=== PATIENT | female | born 1980 | race Caucasian/White ===

== ENCOUNTER 2018-11-10 10:12 | Emergency (ER) | payer SELFPAY ==
[~2018-11-10] VITALS: Ht 160 cm; Wt 68.0 kg
[2018-11-10 11:25] LABS: BASOPHILS % (AUTO) 0.3 % (0.0-2.0); EOSINOPHILS % (AUTO) 0.5 % (1.0-6.0); HEMATOCRIT 37.6 % (36-46); HEMOGLOBIN 12.4 g/dL (12.0-16.0); LYMPHOCYTES # (AUTO) 1.9 K/uL (1.0-4.8); LYMPHOCYTES % (AUTO) 19.6 % (22.0-44.0); MEAN CORPUSCULAR HGB CONC 32.9 G/dL (31.0-37.0); MEAN CORPUSCULAR VOLUME 85 fL (80-100); MONOCYTES # (AUTO) 0.7 K/uL (0.1-1.0); NEUTROPHILS # (AUTO) 7.1 K/uL (1.8-7.7); NEUTROPHILS % (AUTO) 72.6 % (40.0-70.0); PLATELET COUNT (AUTO) 269 K/uL (150-450); RED BLOOD CELL COUNT(AUTO) 4.41 MIL/uL (4.00-5.20); RED CELL DISTRIBUTION WIDTH 14.7 % (11.5-14.5)
[2018-11-10 11:35] LABS: ANION GAP 4 mmol/L (8-16); CALCIUM, TOTAL 9.2 mg/dL (8.8-10.5); CARBON DIOXIDE 28 mmol/L (22-29); CHLORIDE 106 mmol/L (98-107); CREATININE 0.71 mg/dL (0.60-1.30); GLOMERULAR FILTR. RATE CALC > 60 mL/min (>60); GLUCOSE,RANDOM 87 mg/dL (70-110); POTASSIUM 4.3 mmol/L (3.5-5.1); SODIUM SERUM 138 mmol/L (136-145); UREA NITROGEN, BLOOD 11 mg/dL (7-18)
[2018-11-10 11:41] LABS: ALANINE AMINOTRANSFERASE 17 U/L (12-78); ALBUMIN 3.2 g/dL (3.4-5.0); ALKALINE PHOSPHATASE 61 U/L (46-116); ASPARTATE AMINOTRANSFERASE 16 U/L (15-37); BILIRUBIN,TOTAL 0.2 mg/dL (0.1-1.0); TOTAL PROTEIN, SERUM 6.8 g/dL (6.4-8.2)
[2018-11-10 14:06] LABS: APPEARANCE,URINE CLEAR (CLEAR); BILIRUBIN,URINE NEGATIVE (NEGATIVE); GLUCOSE, URINE (UA) NEGATIVE (NEGATIVE); KETONES,URINE NEGATIVE (NEGATIVE); LEUKOCYTE ESTERASE ,URINE NEGATIVE (NEGATIVE); NITRATE,URINE NEGATIVE (NEGATIVE); OCCULT BLOOD,URINE NEGATIVE (NEGATIVE); PH,URINE 5.5 (5.0-8.0); PROTEIN,URINE NEGATIVE (NEGATIVE); UROBILINOGEN,URINE 0.2 mg/dL (<=1.0)
[2018-11-10 14:10] LABS: AMPHET/METH SCREEN,URINE POSITIVE (NEGATIVE); BARBITURATE SCREEN, URINE NEGATIVE (NEGATIVE); BENZODIAZEPINES SCREEN,URINE NEGATIVE (NEGATIVE); CANNABINOID SCREEN,URINE POSITIVE (NEGATIVE); COCAINE SCREEN,URINE NEGATIVE (NEGATIVE); METHADONE SCREEN, URINE NEGATIVE (NEGATIVE); OPIATE SCREEN,URINE NEGATIVE (NEGATIVE)
[2018-11-10 14:13] LABS: PHENCYCLIDINE SCREEN,URINE NEGATIVE (NEGATIVE)
[2018-11-10] MEDS ORDERED: HALOPERIDOL 5 MG TABLET PO ONE (17:15)
[2018-11-10] MEDS ORDERED: BENZTROPINE MESYLATE 2 MG TABLET PO ONE (17:15)
[2018-11-10 20:20] VITALS: BP 133/81
== END 2018-11-10 20:23 | disposition home or self-care (01) ==
LOC: EMS 10:14
DX: F20.0 Paranoid schizophrenia (principal); F15.10 Other stimulant abuse, uncomplicated; F17.210 Nicotine dependence, cigarettes, uncomplicated
CPT/HCPCS: 36415; 80053; 80307; 81003; 85025; 99284; 99406; G0480

== ENCOUNTER 2018-11-16 21:11 | Inpatient (IN) | payer MEDICAID ==
[~2018-11-16] VITALS: Ht 160 cm; Wt 62.6 kg
[2018-11-16 22:07] LABS: AMPHET/METH SCREEN,URINE POSITIVE (NEGATIVE); BARBITURATE SCREEN, URINE NEGATIVE (NEGATIVE); BENZODIAZEPINES SCREEN,URINE NEGATIVE (NEGATIVE); CANNABINOID SCREEN,URINE POSITIVE (NEGATIVE); COCAINE SCREEN,URINE NEGATIVE (NEGATIVE); METHADONE SCREEN, URINE NEGATIVE (NEGATIVE); OPIATE SCREEN,URINE NEGATIVE (NEGATIVE); PHENCYCLIDINE SCREEN,URINE NEGATIVE (NEGATIVE)
[2018-11-16 22:35] LABS: BASOPHILS % (AUTO) 0.5 % (0.0-2.0); EOSINOPHILS % (AUTO) 0.7 % (1.0-6.0); HEMATOCRIT 37.1 % (36-46); HEMOGLOBIN 12.3 g/dL (12.0-16.0); LYMPHOCYTES # (AUTO) 2.4 K/uL (1.0-4.8); LYMPHOCYTES % (AUTO) 23.6 % (22.0-44.0); MEAN CORPUSCULAR HEMOGLOBIN 28.5 pg (26.0-34.0); MEAN CORPUSCULAR HGB CONC 33.2 G/dL (31.0-37.0); MEAN CORPUSCULAR VOLUME 86 fL (80-100); MONOCYTES # (AUTO) 0.8 K/uL (0.1-1.0); MONOCYTES % (AUTO) 7.9 % (2.0-9.0); NEUTROPHILS # (AUTO) 6.7 K/uL (1.8-7.7); NEUTROPHILS % (AUTO) 67.3 % (40.0-70.0); PLATELET COUNT (AUTO) 274 K/uL (150-450); RED BLOOD CELL COUNT(AUTO) 4.32 MIL/uL (4.00-5.20); RED CELL DISTRIBUTION WIDTH 14.9 % (11.5-14.5)
[2018-11-16 22:45] LABS: ANION GAP 11 mmol/L (8-16); CALCIUM, TOTAL 9.3 mg/dL (8.8-10.5); CARBON DIOXIDE 27 mmol/L (22-29); CHLORIDE 102 mmol/L (98-107); CREATININE 0.67 mg/dL (0.60-1.30); GLOMERULAR FILTR. RATE CALC > 60 mL/min (>60); GLUCOSE,RANDOM 84 mg/dL (70-110); POTASSIUM 3.5 mmol/L (3.5-5.1); SODIUM SERUM 140 mmol/L (136-145); UREA NITROGEN, BLOOD 10 mg/dL (7-18)
[2018-11-16 22:57] LABS: ALANINE AMINOTRANSFERASE 14 U/L (12-78); ALBUMIN 3.4 g/dL (3.4-5.0); ALKALINE PHOSPHATASE 70 U/L (46-116); ASPARTATE AMINOTRANSFERASE 16 U/L (15-37); BILIRUBIN,TOTAL 0.3 mg/dL (0.1-1.0); HCG,QUANTITATIVE < 1 mIU/mL (0-6); TOTAL PROTEIN, SERUM 7.4 g/dL (6.4-8.2)
[2018-11-17] MEDS ORDERED: DOXYCYCLINE HYCLATE 100 MG CAPSULE PO ONE ×2 (06:15→09:00)
[2018-11-17] MEDS ORDERED: CEPHALEXIN MONOHYDRATE 500 MG CAPSULE PO ONE (06:15)
[2018-11-17] MEDS ORDERED: ZOLPIDEM TARTRATE 10 MG TABLET PO PRN (06:30)
[2018-11-17] MEDS ORDERED: HALOPERIDOL 5 MG TABLET PO PRN (06:30)
[2018-11-17 09:35] VITALS: BP 123/71
[2018-11-17 09:36] VITALS: BP 123/71
[2018-11-17] MEDS ORDERED: DOCUSATE SODIUM 100 MG CAPSULE PO PRN (10:00)
[2018-11-17] MEDS ORDERED: PETROLATUM,WHITE 28 GM JELLY TP PRN (10:00)
[2018-11-17] MEDS ORDERED: MAG HYDROX/AL HYDROX/SIMETH ES 30 ML SUSPENSION UDCUP PO PRN (10:00)
[2018-11-17] MEDS ORDERED: IBUPROFEN 400 MG TABLET PO PRN (10:00)
[2018-11-17] MEDS ORDERED: ACETAMINOPHEN 325 MG TABLET PO PRN (10:00)
[2018-11-17] MEDS ORDERED: LOPERAMIDE HCL 2 MG CAPSULE PO PRN (10:00)
[2018-11-17] MEDS ORDERED: MAGNESIUM HYDROXIDE SUSPENSION 30 ML UDCUP PO PRN (10:00)
[2018-11-17] MEDS: SULFAMETHOX/TRIMETH DS 800-160 MG/TABLET PO SCH (10:32)
[2018-11-17] MEDS: FLUoxetine HCL 20 MG CAPSULE PO SCH (10:47)
[2018-11-17] MEDS: RisperiDONE 2 MG TABLET PO SCH ×2 (10:47→20:33)
[2018-11-17] MEDS ORDERED: PNEUMOCOCCAL VACCINE POLYVALENT 0.5 ML VIAL [PPSV23] IM ONE (11:15)
[2018-11-17] MEDS: CEPHALEXIN MONOHYDRATE 500 MG CAPSULE PO SCH ×2 (12:50→17:06)
[2018-11-17 16:33] VITALS: BP 100/61
[2018-11-18 03:34] VITALS: BP 122/71
[2018-11-18 08:49] VITALS: BP 110/64
[2018-11-18] MEDS: RisperiDONE 2 MG TABLET PO SCH ×2 (09:33→21:00)
[2018-11-18] MEDS: FLUoxetine HCL 20 MG CAPSULE PO SCH (09:33)
[2018-11-18] MEDS: SULFAMETHOX/TRIMETH DS 800-160 MG/TABLET PO SCH (09:34)
[2018-11-18] MEDS ORDERED: DiphenhydrAMINE HCL 50 MG/ML VIAL IM ONE (10:45)
[2018-11-18 11:10] VITALS: BP 101/77
[2018-11-18 16:00] VITALS: BP 108/67
[2018-11-19 06:20] VITALS: BP 115/68
[2018-11-19 08:20] VITALS: BP 119/74
[2018-11-19 08:50] LABS: CHOL/HDL RATIO 3.2 (3.9-5.7)
[2018-11-19] MEDS: RisperiDONE 2 MG TABLET PO SCH ×2 (09:27→21:22)
[2018-11-19] MEDS: FLUoxetine HCL 20 MG CAPSULE PO SCH (09:27)
[2018-11-19] MEDS: SULFAMETHOX/TRIMETH DS 800-160 MG/TABLET PO SCH (09:28)
[2018-11-19 16:11] VITALS: BP 132/61
[2018-11-20 04:12] VITALS: BP 120/81
[2018-11-20 08:27] VITALS: BP 106/74
[2018-11-20] MEDS: RisperiDONE 2 MG TABLET PO SCH ×2 (09:12→20:16)
[2018-11-20] MEDS: SULFAMETHOX/TRIMETH DS 800-160 MG/TABLET PO SCH (09:13)
[2018-11-20] MEDS: FLUoxetine HCL 20 MG CAPSULE PO SCH (09:15)
[2018-11-20] MEDS: LORazepam 2 MG TABLET PO PRN (09:55)
[2018-11-20 16:13] VITALS: BP 111/71
[2018-11-21 05:37] VITALS: BP 110/85
[2018-11-21 08:34] VITALS: BP 103/64
[2018-11-21] MEDS: RisperiDONE 2 MG TABLET PO SCH ×2 (09:07→20:59)
[2018-11-21] MEDS: SULFAMETHOX/TRIMETH DS 800-160 MG/TABLET PO SCH (09:07)
[2018-11-21] MEDS: FLUoxetine HCL 20 MG CAPSULE PO SCH (09:07)
[2018-11-21] MEDS: LORazepam 2 MG TABLET PO PRN ×2 (09:15→16:11)
[2018-11-21] MEDS: BENZTROPINE MESYLATE 1 MG TABLET PO SCH ×2 (13:32→20:59)
[2018-11-21 16:12] VITALS: BP 112/70
[2018-11-22 08:33] VITALS: BP 113/72
[2018-11-22] MEDS: SULFAMETHOX/TRIMETH DS 800-160 MG/TABLET PO SCH (08:37)
[2018-11-22] MEDS: LORazepam 2 MG TABLET PO PRN (08:37)
[2018-11-22] MEDS: BENZTROPINE MESYLATE 1 MG TABLET PO SCH (08:38)
[2018-11-22] MEDS: RisperiDONE 2 MG TABLET PO SCH (08:38)
[2018-11-22] MEDS: FLUoxetine HCL 20 MG CAPSULE PO SCH (08:38)
[2018-11-22] MEDS ORDERED: FLUO-191 PO ×2 (10:46→11:04)
[2018-11-22] MEDS ORDERED: RISP2 PO (10:46)
[2018-11-22] MEDS ORDERED: BENZ1TAB10 PO ×2 (10:46→11:04)
[2018-11-22] MEDS ORDERED: SULF1TAB42 PO (11:04)
[2018-11-22] MEDS ORDERED: RISP2TAB76 PO (11:04)
== END 2018-11-22 13:25 | disposition home or self-care (01) | DRG 750 ==
LOC: EMS 21:14 → B2X 11-17 08:40
PROC: 0H9FXZZ Drainage of Right Hand Skin, External Approach (ICD-10-PCS; principal; 2018-11-17)
DX: F25.1 Schizoaffective disorder, depressive type (principal); R45.851 Suicidal ideations; Z59.0 Homelessness; F17.210 Nicotine dependence, cigarettes, uncomplicated; F15.10 Other stimulant abuse, uncomplicated; L03.011 Cellulitis of right finger; Z79.899 Other long term (current) drug therapy; I10 Essential (primary) hypertension; Z91.5 Personal history of self-harm; F12.10 Cannabis abuse, uncomplicated; F41.9 Anxiety disorder, unspecified; F10.21 Alcohol dependence, in remission; Z71.51 Drug abuse counseling and surveillance of drug abuser; Z71.6 Tobacco abuse counseling
CPT/HCPCS: 10060; 90732; G0480; J1200